=== PATIENT | male | born 1985 | race Caucasian/White ===

== ENCOUNTER 2021-11-22 18:46 | Emergency (ER) | payer BC, SELFPAY ==
[2021-11-22 18:46] VITALS: BP 166/95; PULSE 105; RESP 16; TEMP 36.7; O2SAT 93
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
[2021-11-22] MEDS: ibuprofen 800 mg tablet PO (19:38)
[2021-11-22 19:57] VITALS: BMI 43.4
== END 2021-11-22 21:50 | disposition home or self-care (01) ==
PROVIDERS: Emergency Provider Emergency Medicine
DX: S62.521A Displaced fracture of distal phalanx of right thumb, initial encounter for closed fracture (principal); S82.141A Displaced bicondylar fracture of right tibia, initial encounter for closed fracture; S01.81XA Laceration without foreign body of other part of head, initial encounter; V86.59XA Driver of other special all-terrain or other off-road motor vehicle injured in nontraffic accident, initial encounter
CPT/HCPCS: 12056; 29530; 70450; 70486; 72125; 73130; 73562; 99285; E0114